=== PATIENT | male | born 2005 | race African-American/Black ===

== ENCOUNTER 2025-01-30 18:07 | Emergency (ER) | payer BC ==
[2025-01-30] MEDS ORDERED: predniSONE 20 MG TAB ONE (19:21)
[2025-01-30] MEDS ORDERED: Acetaminophen 500 MG TAB ONE (19:21)
== END 2025-01-30 20:13 | disposition home or self-care (01) ==
LOC: CSHERS 18:07
DX: J18.9 Pneumonia, unspecified organism (principal)
CPT/HCPCS: 71046; 87081; 87428; 87430; J7512